=== PATIENT | female | born 1985 | race Caucasian/White ===

== ENCOUNTER 2020-07-08 11:45 | Emergency (ER) | payer OTHER ==
[~2020-07-08] VITALS: Ht 160 cm; Wt 54.5 kg
[2020-07-08] MEDS ORDERED: ONDANSETRON PF 4 MG/2 ML VIAL. IVP ONE (12:00)
[2020-07-08] MEDS ORDERED: IV NORMAL SALINE 1,000ML 1,000 ML IV ONE (12:00)
[2020-07-08] MEDS ORDERED: MORPHINE SULFATE 4 MG/ML DISP.SYRIN. IV ONE ×2 (12:00→13:45)
--- NOTE | 2020-07-08 12:05 | PHYS DOC ---
General Adult HPI: HPI: Patient is a 35-year-old female presents with right lower quadrant abdominal pain. Patient states that she woke up at 530 this morning and shortly after started having pain. Patient reports nausea and vomiting. Denies diarrhea or fevers. Denies shortness of breath or chest pain. Denies dysuria or frequency. Pain is constant, sharp. Patient reports taking ibuprofen and Tylenol with no relief this morning. Denies medical history. (JANESSA LAWS APRN) Review of Systems: Review of Systems: Constitutional: Denies fever or chills Eyes: Denies change in visual acuity HENT: Denies nasal congestion or sore throat Respiratory: Denies cough or shortness of breath Cardiovascular: Denies chest pain or edema GI: Reports right lower quadrant abdominal pain, nausea, vomiting. Denies bloody stools or diarrhea : Denies dysuria Musculoskeletal: Denies back pain or joint pain Integument: Denies rash Neurologic: Denies headache, focal weakness or sensory changes Endocrine: Denies polyuria or polydipsia Lymphatic: Denies swollen glands Psychiatric: Denies depression or anxiety (JANESSA LAWS APRN) Physical Exam: PE: Constitutional: Well developed, well nourished, no acute distress, non-toxic appearance. [] HENT: Normocephalic, atraumatic, bilateral external ears normal, oropharynx moist, no oral exudates, nose normal. [] Eyes: PERRLA, EOMI, conjunctiva normal, no discharge. [] Neck: Normal range of motion, no tenderness, supple, no stridor. [] Cardiovascular:Heart rate regular rhythm, no murmur [] Lungs & Thorax: Bilateral breath sounds clear to auscultation [] Abdomen: Bowel sounds normal, soft, right lower quadrant tenderness Skin: Warm, dry, no erythema, no rash. [] Back: No tenderness, no CVA tenderness. [] Extremities: No tenderness, no cyanosis, no clubbing, ROM intact, no edema. [] Neurologic: Alert and oriented X 3, normal motor function, normal sensory fun ction, no focal deficits noted. [] Psychologic: Affect normal, judgement normal, mood normal. [] (JANESSA LAWS APRN) EKG: EKG: Sinus rhythm. Heart rate [address] Lacey. [] (JANESSA LAWS APRN) Radiology/Procedures: Radiology/Procedures: []CT of the abdomen and pelvis without contrast. 07/08/2020 12:25 PM Indication: Reason: ABDOMINAL PAIN, RLQ / Spl. Instructions: / History: Comparison Study: None. Technique: Multidetector CT imaging of the abdomen pelvis is obtained without administration of contrast. Findings: The visualized bilateral lung bases are clear. The liver, spleen, bilateral adrenal glands, gallbladder, and pancreas have a normal noncontrast enhanced appearance. The bilateral kidneys are grossly normal in appearance. There is no evidence of nephrolithiasis or obstructive uropathy. The ureters are normal in course and caliber. There is a large cystic mass in the pelvis measuring 8.5 x 7.5 x 7.0 cm. An area of internal septation, but is poorly visualized on noncontrast enhanced CT. This exerts considerable mass effect upon the superior bladder. The cystic mass is large enough that it appears to abut both adnexal regions. This is suspicious for an ovarian cyst or cystic neoplasm. Peritoneal inclusion cyst could be considered, but is felt to be less likely. Small amount of free fluid is present posterior to the uterus. No pneumoperitoneum is identified. There is no bowel obstruction. The appendix is unremarkable in appearance. No acute osseous changes are seen. IMPRESSION: 1. 8.5 cm cystic mass in the pelvis anterior to the uterus but above abutting both adnexal regions concerning for ovarian cyst versus cystic neoplasm. Evaluation is limited with noncontrast enhanced CT. Recommend further characterization with pelvic ultrasound and/or MRI. 2. Small amount of free pelvic fluid. CT DOSING PQRS STATEMENT: One or more of the following individualized dose reduction techniques were utilized for this examination: 1. Automated exposure control 2. Adjustment of the mA and/or kV according to patient size 3. Use of iterative reconstruction technique Electronically signed by: Michoacano Aguilar MD (07/08/2020 12:50 PM) [id number] EXAM: Chest, single view. HISTORY: Pain. COMPARISON: None. FINDINGS: A frontal view of the chest is obtained. There is no infiltrate, pleural fusion or pneumothorax. The heart is normal in size. IMPRESSION: No acute pulmonary finding. Electronically signed by: Destiny Driscoll MD (07/08/2020 12:35 PM) [id number] EXAM: Pelvic sonogram. HISTORY: Right lower quadrant pain. TECHNIQUE: Sonographic imaging of the pelvis was performed. COMPARISON: CT dated 07/08/2020. FINDINGS: The uterus measures 6.6 x 5.1 x 2.8 cm. The endometrial stripe measures 2 mm in thickness. There is a large cyst within the midline pelvis which appears to be contiguous with the right ovary. This cyst measures 7.0 cm in maximum dimension and contains internal debris. There is normal blood flow within the surrounding right ovarian parenchyma measuring 9.0 x 6.2 x 7.2 cm. The left ovary is normal in size and demonstrates normal blood flow. There is no pelvic free fluid. IMPRESSION: 1. 7.0 cm cyst with internal debris within the midline pelvis, likely ovarian or paraovarian in etiology. Surgical consultation may be indicated given the size of this lesion. There is normal blood flow within the bilateral ovaries. 2. Otherwise, unremarkable pelvic sonogram. Electronically signed by: Destiny Driscoll MD (07/08/2020 2:04 PM) [id number] (JANESSA LAWS APRN) Heart Score: C/O Chest Pain: No Risk Factors: Risk Factors: DM, Current or recent (<one month) smoker, HTN, HLP, family history of CAD, obesity. Risk Scores: Score 0 - 3: 2.5% MACE over next 6 weeks - Discharge Home Score 4 - 6: 20.3% MACE over next 6 weeks - Admit for Clinical Observation Score 7 - 10: 72.7% MACE over next 6 weeks - Early Invasive Strategies (JANESSA LAWS APRN) Course & Med Decision Making: Course & Med Decision Making Pertinent Labs and Imaging studies reviewed. (See chart for details) [] Patient presents with right lower quadrant abdominal pain. Patient is describing pain as sharp, constant. Patient reports vomiting 1 time this morning. Last bowel movement was yesterday, which was normal for patient. Patient denies diarrhea or fevers. Patient denies radiation of pain. Patient took ibuprofen and Tylenol this morning with no relief. Zofran and morphine ordered to treat pain and nausea. EKG shows sinus rhythm. Heart rate 56 bpm. All other labs unremarkable. CT of abdomen pelvis shows 8.5 cm cystic mass in the pelvis anterior to the uterus but above abutting both adnexal regions. Pelvic ultrasound ordered to rule out torsion. Ultrasound is negative for torsion. 7.0 cm cyst with internal debris within the midline pelvis, likely ovarian or paraovarian in etiology. There is normal blood flow within the bilateral ovaries. Referral given for [facility] consult. Patient instructed to call [facility] Today to set up an appointment for possible surgical intervention. I am sending patient home with a prescription for hydrocodone and Zofran. Instructed patient to return to the emergency room with worsening symptoms, uncontrolled pain or concerns. Patient is hemodynamically stable. Pain and nausea are controlled at this time. Patient states that she understands and is okay with this discharge plan. (JANESSA LAWS APRN) Dragon Disclaimer: Dragon Disclaimer: This electronic medical record was generated, in whole or in part, using a voice recognition dictation system. (JANESSA LAWS APRN) Attending Co-Sign The patient was seen and interviewed as well as examined at the bedside. The chart was reviewed. The case was discussed. Agree with the plan of care. (JANET LACEY DO) Departure Departure: Impression: Primary Impression: Ovarian cyst Qualified Codes: N83.201 - Unspecified ovarian cyst, right side Disposition: 02 SHORT TERM [facility]OSPITAL Condition: STABLE Referrals: PCP,UNKNOWN (PCP) Patient Instructions: Ovarian Cyst, [id number] Additional Instructions: See room for right lower quadrant pain that started this morning. CT of your abdomen pelvis showed an 8.3 cm ovarian cyst. You will need to follow-up with [facility] for further recommendation and management. I am going to send you home with nausea and pain medication until you are able to follow-up. I have included a [facility] that you can call today to make an appointment. If your pain is uncontrolled or you have worsening symptoms please return to the emergency room. SENIOR FOREMAN Win Jennings MD [phone] [facility] [address] EMERGENCY DEPARTMENT GENERAL DISCHARGE INSTRUCTIONS Thank you for coming to [facility] (ED) today and trusting us with you care. We trust that you had a positivie experience in our Emergency Department. If you wish to speak to the department management, you may call the director at [phone]. YOUR FOLLOW UP INSTRUCTIONS ARE FOLLOWS: 1. Do you have a private Doctor? If you do not have a private doctor, please ask for a resource list of physicians or clinics that may be able to assist you with follow up care. 2. The Emergency Physician has interpreted your x-rays. The X-Ray specialist will also review them. If there is a change in the findings, you will be notified in 48 hours when at all possible. 3. A lab test or culture has been done, your results will be reviewed and you will be notified if you need a change in treatment. ADDITIONAL INSTRUCTIONS AND INFORMATION: 1. Your care today has been supervised by a physician who is specially trained in emergency care. Many problems require more than one evaluation for a complete diagnosis and treatment. We recommend that you schedule your follow up appointment as recommended to ensure complete treatment of you illness or injury. If you are unable to obtain follow up care and continue to have a problem, or if your condition worsens, we recommend that you return to the ED. 2. We are not able to safely determine your condition over the phone nor are we able to give sound medical advice over the phone. For these safety reasons, if you call for medical advice we will ask you to come to the ED for further evaluation. 3. If you have any questions regarding these discharge instructions please call the ED at [phone]. SAFETY INFORMATION: In the interest of safety, wellness, and injury prevention; we encourage you to wear your sealbelt, if you smoke; quite smoking, and we encourage family to use a protective helmet for bicycling and other sporting events that present an increased risk for head injury. IF YOUR SYMPTOMS WORSEN OR NEW SYMPTOMS DEVELOP, OR YOU HAVE CONCERNS ABOUT YOUR CONDITION; OR IF YOUR CONDITION WORSENS WHILE YOU ARE WAITING FOR YOUR FOLLOW UP APPOINTMENT; EITHER CONTACT YOUR PRIMARY CARE DOCTOR, THE PHYSICIAN WHOSE NAME AND NUMBER YOU WERE GIVEN, OR RETURN TO THE ED IMMEDIATELY. Scripts Hydrocodone Bit/Acetaminophen (HYDROCODONE-APAP 5-325 ) 1 Each Tablet 1 TAB PO PRN Q6HRS PRN for PAIN for 3 Days, #12 TAB 0 Refills Prov: JANESSA LAWS APRN 07/08/20 Ondansetron Hcl (ZOFRAN) 4 Mg Tablet 4 MG PO TID PRN PRN for NAUSEA, #9 TAB Prov: JANESSA LAWS APRN 07/08/20 JANESSA LAWS APRN Jul 08, 2020 12:04 JANET LACEY DO Jul 13, 2020 18:29
[2020-07-08 12:29] LABS: BASO % 0 % (0-3); EOS % 1 % (0-3); HEMATOCRIT 41.4 % (39.0-53.0); HEMOGLOBIN 13.8 g/dL (13.0-17.5); LYMPH % 21 % (24-48); MEAN CORPUSCULAR HEMOGLOBIN 31 pg (25-35); MEAN CORPUSCULAR HGB CONC 34 g/dL (31-37); MEAN CORPUSCULAR VOLUME 94 fL (79-100); MONO # 0.3 x10^3/uL (0.0-1.1); MONO % 5 % (0-9); NEUT # 3.6 x10^3uL (1.8-7.7); NEUT % 73 % (31-73); PLATELET COUNT 245 x10^3/uL (140-400); RED BLOOD COUNT 4.42 x10^6/uL (4.30-5.70); RED CELL DISTRIBUTION WIDTH 12.7 % (11.5-14.5); WHITE BLOOD COUNT 4.9 x10^3/uL (4.0-11.0)
--- NOTE | 2020-07-08 12:37 | RAD ---
EXAM: Chest, single view. HISTORY: Pain. COMPARISON: None. FINDINGS: A frontal view of the chest is obtained. There is no infiltrate, pleural fusion or pneumoth orax. The heart is normal in size. IMPRESSION: No acute pulmonary finding. Electronically signed by: Destiny Driscoll MD (07/08/2020 12:35 PM) [id number]
[2020-07-08 12:40] LABS: CALCIUM 8.7 mg/dL (8.5-10.1); CREATININE 0.9 mg/dL (0.6-1.0); GFR 72.1; POTASSIUM 3.8 mmol/L (3.5-5.1)
[2020-07-08 12:44] LABS: ALBUMIN 3.9 g/dL (3.4-5.0); ALBUMIN/GLOBULIN RATIO 1.1 (1.0-1.7); TOTAL BILIRUBIN 0.3 mg/dL (0.2-1.0); TOTAL PROTEIN 7.6 g/dL (6.4-8.2)
--- NOTE | 2020-07-08 12:53 | RAD ---
CT of the abdomen and pelvis without contrast. 07/08/2020 12:25 PM Indication: Reason: ABDOMINAL PAIN, RLQ / Spl. Instructions: / History: Comparison Study: None. Technique: Multidetector CT imaging of the abdomen pelvis is obtained without administration of contr ast. Findings: The visualized bilateral lung bases are clear. The liver, spleen, bilateral adrenal glands, gallbladder, and pancreas have a normal noncontrast enh anced appearance. The bilateral kidneys are grossly normal in appearance. There is no evidence of nep hrolithiasis or obstructive uropathy. The ureters are normal in course and caliber. There is a large cystic mass in the pelvis measuring 8.5 x 7.5 x 7.0 cm. An area of internal septatio n, but is poorly visualized on noncontrast enhanced CT. This exerts considerable mass effect upon the superior bladder. The cystic mass is large enough that it appears to abut both adnexal regions. This is suspicious for an ovarian cyst or cystic neoplasm. Peritoneal inclusion cyst could be considered, but is felt to be less likely. Small amount of free fluid is present posterior to the uterus. No pne umoperitoneum is identified. There is no bowel obstruction. The appendix is unremarkable in appearanc e. No acute osseous changes are seen. IMPRESSION: 1. 8.5 cm cystic mass in the pelvis anterior to the uterus but above abutting both adnexal regions co ncerning for ovarian cyst versus cystic neoplasm. Evaluation is limited with noncontrast enhanced CT. Recommend further characterization with pelvic ultrasound and/or MRI. 2. Small amount of free pelvic fluid. CT DOSING PQRS STATEMENT: One or more of the following individualized dose reduction techniques were utilized for this examinat ion: 1. Automated exposure control 2. Adjustment of the mA and/or kV according to patient size 3. Use of iterative reconstruction technique Electronically signed by: Michoacano Aguilar MD (07/08/2020 12:50 PM) [id number]
--- NOTE | 2020-07-08 14:07 | RAD ---
EXAM: Pelvic sonogram. HISTORY: Right lower quadrant pain. TECHNIQUE: Sonographic imaging of the pelvis was performed. COMPARISON: CT dated 07/08/2020. FINDINGS: The uterus measures 6.6 x 5.1 x 2.8 cm. The endometrial stripe measures 2 mm in thickness. There is a large cyst within the midline pelvis which appears to be contiguous with the right ovary. This cyst measures 7.0 cm in maximum dimension and contains internal debris. There is normal blood fl ow within the surrounding right ovarian parenchyma measuring 9.0 x 6.2 x 7.2 cm. The left ovary is no rmal in size and demonstrates normal blood flow. There is no pelvic free fluid. IMPRESSION: 1. 7.0 cm cyst with internal debris within the midline pelvis, likely ovarian or paraovarian in etiol ogy. Surgical consultation may be indicated given the size of this lesion. There is normal blood flow within the bilateral ovaries. 2. Otherwise, unremarkable pelvic sonogram. Electronically signed by: Destiny Driscoll MD (07/08/2020 2:04 PM) [id number]
[2020-07-08] MEDS ORDERED: ONDA4TAB7 PO (14:26)
[2020-07-08] MEDS ORDERED: HYDR-2759 PO (14:26)
[2020-07-08] MEDS ORDERED: HYDR-2155 PO (14:34)
[2020-07-08 14:35] VITALS: BP 108/67
--- NOTE | 2020-07-08 15:17 | EKG ---
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
== END 2020-07-08 14:48 | disposition home or self-care (01) ==
LOC: ER 11:45 → EDSEX 11:45 → ER 14:48
DX: N83.201 Unspecified ovarian cyst, right side (principal); R11.2 Nausea with vomiting, unspecified
CPT/HCPCS: 36415; 71045; 74176; 76856; 80053; 83690; 85025; 93005; 96361; 96374; 96375; 96376; 99285; J2270; J2405; J7030